=== PATIENT | female | born 1980 | race African-American/Black ===

== ENCOUNTER 2020-05-08 12:07 | Inpatient (IN) | payer OTHER ==
[2020-05-08 16:01] VITALS: BMI 24.9
[2020-05-08] MEDS ORDERED: ACETAMINOPHEN 325 MG TABLET (FP) PO PRN ×2 (16:48)
[2020-05-08] MEDS ORDERED: MAGNESIUM CITRATE 300 ML BOTTLE PO PRN (16:48)
[2020-05-08] MEDS ORDERED: MENTHOL/PHENOL 1 EACH UD MM PRN (16:48)
[2020-05-08] MEDS ORDERED: NICOTINE POLACRILEX 2 MG GUM BUC PRN (16:48)
[2020-05-08] MEDS ORDERED: MAG HYDROX/AL HYDROX/SIMETH 30 ML UNIT-DOSE CUP PO PRN (16:48)
[2020-05-08] MEDS ORDERED: BISMUTH SUBSALICYLATE 524 MG/30 ML UD PO PRN (16:48)
[2020-05-08] MEDS ORDERED: IBUPROFEN 400 MG TABLET (FP) PO PRN (16:48)
[2020-05-08] MEDS ORDERED: cloNIDine HCL 0.1 MG TABLET PO PRN (16:48)
[2020-05-08] MEDS ORDERED: MAGNESIUM HYDROX 2400MG/30ML ORAL SUSPENSION 30 ML CUP PO PRN (16:48)
[2020-05-08] MEDS ORDERED: METHOCARBAMOL 500 MG TABLET PO PRN (16:48)
[2020-05-08] MEDS ORDERED: ONDANSETRON *ODT* 4 MG TABLET SL PRN (16:48)
[2020-05-08] MEDS: hydrOXYzine PAMOATE 25 MG CAPSULE (FP) PO SCH ×2 (18:51→22:31)
[2020-05-08] MEDS ORDERED: METHADONE HCL 10 MG TABLET (FOR DETOX USE ONLY) PO ONE (22:00)
[2020-05-08] MEDS: THIAMINE HCL 100 MG TABLET (FP) PO SCH (22:31)
[2020-05-08] MEDS: MELATONIN 5 MG TABLETS PO SCH (22:31)
[2020-05-09] MEDS: hydrOXYzine PAMOATE 25 MG CAPSULE (FP) PO SCH ×5 (05:52→22:32)
[2020-05-09] MEDS ORDERED: METHADONE HCL 10 MG TABLET (FOR DETOX USE ONLY) ONE (09:14)
[2020-05-09] MEDS ORDERED: METHADONE HCL 5 MG TABLET (FOR DETOX USE ONLY) ONE (09:14)
[2020-05-09] MEDS ORDERED: METHADONE (DETOX) 20 MG, METHADONE (DETOX) 5 MG PO ONE (10:00)
[2020-05-09] MEDS: PRENATAL VITAMINS W/ FOLIC ACID TABLET (FP) PO SCH (10:02)
[2020-05-09] MEDS ORDERED: COLLOIDAL OATMEAL 1 BAR EACH TP PRN (10:42)
[2020-05-09 10:56] LABS: HEMATOCRIT 35.6 % (32.4-45.2); HEMOGLOBIN 11.7 GM/dL (10.7-15.3); MCHC 32.8 g/dl (32.0-36.0); MEAN CELL VOLUME 94.5 fl (80-96); MEAN PLT VOLUME 7.9 fl (7.5-11.1); PLATELET COUNT 238 K/MM3 (134-434); RBC 3.77 M/mm3 (3.60-5.2); RDW 13.1 % (11.6-15.6); WHITE BLOOD COUNT 3.9 K/mm3 (4.0-10.0)
[2020-05-09 11:06] LABS: POTASSIUM 3.9 mmol/L (3.5-5.1)
[2020-05-09] MEDS: VITAMINS A AND D TOPICAL OINTMENT 60 GM TUBE TP SCH ×3 (11:07→22:33)
[2020-05-09 11:30] LABS: CALCIUM 8.5 mg/dL (8.5-10.1)
[2020-05-09 11:31] LABS: BLOOD UREA NITROGEN 19.3 mg/dL (7-18)
[2020-05-09 11:34] LABS: CREATININE 0.8 mg/dL (0.55-1.3)
[2020-05-09 11:35] LABS: TOT PROT 5.9 g/dl (6.4-8.2)
[2020-05-09 11:36] LABS: BILIRUBIN,TOTAL 1.6 mg/dL (0.2-1)
[2020-05-09 11:54] LABS: HIV INTERPRETATION NEGATIVE (NEGATIVE)
[2020-05-09] MEDS: NICOTINE 21 MG/24 HOURS TOPICAL PATCH TD SCH (14:40)
[2020-05-09 15:37] LABS: URINE APPEARANCE Error; URINE BILIRUBIN NEGATIVE (NEGATIVE); URINE COLOR YELLOW; URINE GLUCOSE (UA) NEGATIVE (NEGATIVE); URINE KETONE NEGATIVE (NEGATIVE); URINE LEUK ESTERASE NEGATIVE (NEGATIVE); URINE NITRITE NEGATIVE (NEGATIVE); URINE PROTEIN NEGATIVE (NEGATIVE); URINE UROBILINOGEN 0.2 mg/dL (0.2-1.0)
[2020-05-09 15:46] LABS: EPI CELLS 26 /uL (0-25.1); HYALINE CASTS 0 /uL (0-3.1); URINE BACTERIA 198 /uL (0-1359); URINE RBC 3 /uL (0-23.9); URINE WBC 16 /uL (0-25.8)
[2020-05-09] MEDS: MELATONIN 5 MG TABLETS PO SCH (22:32)
[2020-05-09] MEDS: THIAMINE HCL 100 MG TABLET (FP) PO SCH (22:33)
[2020-05-10] MEDS: VITAMINS A AND D TOPICAL OINTMENT 60 GM TUBE TP SCH ×4 (05:49→23:37)
[2020-05-10] MEDS: hydrOXYzine PAMOATE 25 MG CAPSULE (FP) PO SCH ×2 (05:51→10:36)
[2020-05-10] MEDS ORDERED: METHADONE HCL 10 MG TABLET (FOR DETOX USE ONLY) PO ONE (10:00)
[2020-05-10] MEDS: PRENATAL VITAMINS W/ FOLIC ACID TABLET (FP) PO SCH (10:19)
[2020-05-10] MEDS: NICOTINE 21 MG/24 HOURS TOPICAL PATCH TD SCH (10:21)
[2020-05-10] MEDS: hydrOXYzine PAMOATE 50 MG CAPSULE (FP) PO SCH ×4 (10:42→22:19)
[2020-05-10] MEDS: metroNIDAZOLE 250 MG TABLET PO SCH ×2 (14:59→22:19)
[2020-05-10] MEDS: MELATONIN 5 MG TABLETS PO SCH (22:20)
[2020-05-10] MEDS: CLOTRIMAZOLE 1% VAGINAL CREAM WITH APPLICATOR 45 GM TUBE VG SCH (22:20)
[2020-05-10] MEDS: THIAMINE HCL 100 MG TABLET (FP) PO SCH (22:20)
[2020-05-11] MEDS: VITAMINS A AND D TOPICAL OINTMENT 60 GM TUBE TP SCH ×4 (07:34→22:09)
[2020-05-11] MEDS: hydrOXYzine PAMOATE 50 MG CAPSULE (FP) PO SCH ×5 (07:35→22:07)
[2020-05-11] MEDS ORDERED: METHADONE HCL 10 MG TABLET (FOR DETOX USE ONLY) ONE (08:54)
[2020-05-11] MEDS ORDERED: METHADONE HCL 5 MG TABLET (FOR DETOX USE ONLY) ONE (08:55)
[2020-05-11] MEDS ORDERED: MASKS NR ONE (09:21)
[2020-05-11] MEDS: PRENATAL VITAMINS W/ FOLIC ACID TABLET (FP) PO SCH (09:40)
[2020-05-11] MEDS: metroNIDAZOLE 250 MG TABLET PO SCH ×2 (09:41→22:08)
[2020-05-11] MEDS: NICOTINE 21 MG/24 HOURS TOPICAL PATCH TD SCH (09:41)
[2020-05-11] MEDS ORDERED: METHADONE (DETOX) 10 MG, METHADONE (DETOX) 5 MG PO ONE (10:00)
[2020-05-11] MEDS: MELATONIN 5 MG TABLETS PO SCH (22:08)
[2020-05-11] MEDS: THIAMINE HCL 100 MG TABLET (FP) PO SCH (22:08)
[2020-05-11] MEDS: CLOTRIMAZOLE 1% VAGINAL CREAM WITH APPLICATOR 45 GM TUBE VG SCH (22:10)
[2020-05-12] MEDS: VITAMINS A AND D TOPICAL OINTMENT 60 GM TUBE TP SCH ×4 (06:58→22:53)
[2020-05-12] MEDS: hydrOXYzine PAMOATE 50 MG CAPSULE (FP) PO SCH ×5 (07:13→22:14)
[2020-05-12] MEDS: metroNIDAZOLE 250 MG TABLET PO SCH ×2 (09:46→22:15)
[2020-05-12] MEDS: NICOTINE 21 MG/24 HOURS TOPICAL PATCH TD SCH (09:46)
[2020-05-12] MEDS: PRENATAL VITAMINS W/ FOLIC ACID TABLET (FP) PO SCH (09:46)
[2020-05-12] MEDS ORDERED: METHADONE HCL 10 MG TABLET (FOR DETOX USE ONLY) PO ONE (10:00)
[2020-05-12 10:21] LABS: HEMATOCRIT 35.8 % (32.4-45.2); HEMOGLOBIN 11.8 GM/dL (10.7-15.3); MCH 31.2 pg (25.7-33.7); MCHC 32.9 g/dl (32.0-36.0); MEAN CELL VOLUME 94.7 fl (80-96); MEAN PLT VOLUME 8.1 fl (7.5-11.1); PLATELET COUNT 260 K/MM3 (134-434); POTASSIUM 4.2 mmol/L (3.5-5.1); RBC 3.78 M/mm3 (3.60-5.2); RDW 13.3 % (11.6-15.6); WHITE BLOOD COUNT 4.8 K/mm3 (4.0-10.0)
[2020-05-12 10:24] LABS: BLOOD UREA NITROGEN 18.1 mg/dL (7-18); CALCIUM 8.8 mg/dL (8.5-10.1)
[2020-05-12 10:26] LABS: CREATININE 0.7 mg/dL (0.55-1.3)
[2020-05-12 10:28] LABS: BILIRUBIN,TOTAL 0.6 mg/dL (0.2-1)
[2020-05-12] MEDS: MELATONIN 5 MG TABLETS PO SCH (22:14)
[2020-05-12] MEDS: CLOTRIMAZOLE 1% VAGINAL CREAM WITH APPLICATOR 45 GM TUBE VG SCH (22:14)
[2020-05-12] MEDS: THIAMINE HCL 100 MG TABLET (FP) PO SCH (22:14)
[2020-05-13] MEDS ORDERED: METHADONE HCL 5 MG TABLET (FOR DETOX USE ONLY) PO ONE (06:00)
[2020-05-13] MEDS: hydrOXYzine PAMOATE 50 MG CAPSULE (FP) PO SCH ×2 (06:04→08:59)
[2020-05-13] MEDS: VITAMINS A AND D TOPICAL OINTMENT 60 GM TUBE TP SCH (06:18)
[2020-05-13] MEDS: NICOTINE 21 MG/24 HOURS TOPICAL PATCH TD SCH (08:59)
[2020-05-13] MEDS: PRENATAL VITAMINS W/ FOLIC ACID TABLET (FP) PO SCH (08:59)
[2020-05-13 09:02] VITALS: BP 120/67; PULSE 77; TEMP 97.3
== END 2020-05-13 09:10 | disposition home or self-care (01) | DRG 773 ==
LOC: YASAS 12:07 → Y3N 17:57
PROVIDERS: ADMIT Allergy & Immunology; ATTEND Allergy & Immunology
PROC: HZ2ZZZZ Detoxification Services for Substance Abuse Treatment (ICD-10-PCS; principal; 2020-05-08)
DX: F11.23 Opioid dependence with withdrawal (principal); F10.230 Alcohol dependence with withdrawal, uncomplicated; F13.230 Sedative, hypnotic or anxiolytic dependence with withdrawal, uncomplicated; F14.20 Cocaine dependence, uncomplicated; F12.20 Cannabis dependence, uncomplicated; F16.10 Hallucinogen abuse, uncomplicated; F17.210 Nicotine dependence, cigarettes, uncomplicated; Z56.0 Unemployment, unspecified; Z59.0 Homelessness
CPT/HCPCS: 36415; 80053; 81003; 81025; 85027; 86780; 87086; 87389; C9803; U0003

== ENCOUNTER 2021-04-07 12:04 | Inpatient (IN) | payer OTHER ==
[2021-04-07 14:25] VITALS: BMI 21.2
[2021-04-07] MEDS ORDERED: LORazepam 1 MG TABLET PO PRN (14:54)
[2021-04-07] MEDS ORDERED: IBUPROFEN 400 MG TABLET (FP) PO PRN (14:54)
[2021-04-07] MEDS ORDERED: methaDONE HCL 10 MG TABLET (FOR DETOX USE ONLY) PO ONE (14:54)
[2021-04-07] MEDS ORDERED: MAGNESIUM CITRATE 300 ML BOTTLE PO PRN (14:54)
[2021-04-07] MEDS ORDERED: MAG HYDROX/AL HYDROX/SIMETH 30 ML UNIT-DOSE CUP PO PRN (14:54)
[2021-04-07] MEDS ORDERED: METHOCARBAMOL 500 MG TABLET PO PRN (14:54)
[2021-04-07] MEDS ORDERED: cloNIDine HCL 0.1 MG TABLET PO PRN (14:54)
[2021-04-07] MEDS ORDERED: MENTHOL/PHENOL 1 EACH UD MM PRN (14:54)
[2021-04-07] MEDS ORDERED: MAGNESIUM HYDROX 2400MG/30ML ORAL SUSPENSION 30 ML CUP PO PRN (14:54)
[2021-04-07] MEDS ORDERED: BISMUTH SUBSALICYLATE 524 MG/30 ML PO PRN (14:54)
[2021-04-07] MEDS ORDERED: ONDANSETRON *ODT* 4 MG TABLET SL PRN (14:54)
[2021-04-07] MEDS ORDERED: NICOTINE 10 MG CARTRIDGE (INHALER) IH PRN (14:54)
[2021-04-07] MEDS ORDERED: ACETAMINOPHEN 325 MG TABLET (FP) PO PRN ×2 (14:54)
[2021-04-07] MEDS ORDERED: LORazepam 2 MG TABLET PO ONE (14:54)
[2021-04-07] MEDS ORDERED: COLLOIDAL OATMEAL 1 BAR EACH TP PRN (14:56)
[2021-04-07] MEDS: THIAMINE HCL 100 MG TABLET (FP) PO SCH (23:55)
[2021-04-07] MEDS: MELATONIN 5 MG TABLETS PO SCH (23:55)
[2021-04-07] MEDS: LORazepam 2 MG TABLET PO SCH (23:56)
[2021-04-07] MEDS: PRENATAL VITAMINS W/ FOLIC ACID TABLET (FP) PO SCH (23:56)
[2021-04-07] MEDS: METHYL SALICYLATE/MENTHOL OINT 30 GM TUBE TP SCH (23:56)
[2021-04-07] MEDS: NICOTINE 21 MG/24 HOURS TOPICAL PATCH TD SCH (23:57)
[2021-04-08] MEDS: LORazepam 2 MG TABLET PO SCH ×5 (00:40→22:40)
[2021-04-08] MEDS ORDERED: methaDONE HCL 10 MG TABLET (FOR DETOX USE ONLY) ONE (09:15)
[2021-04-08] MEDS: METHYL SALICYLATE/MENTHOL OINT 30 GM TUBE TP SCH ×2 (11:03→22:40)
[2021-04-08] MEDS: PRENATAL VITAMINS W/ FOLIC ACID TABLET (FP) PO SCH (11:08)
[2021-04-08] MEDS: NICOTINE 21 MG/24 HOURS TOPICAL PATCH TD SCH (11:08)
[2021-04-08] MEDS: THIAMINE HCL 100 MG TABLET (FP) PO SCH (22:39)
[2021-04-08] MEDS: MELATONIN 5 MG TABLETS PO SCH (22:39)
[2021-04-09] MEDS: LORazepam 1 MG TABLET PO SCH ×4 (06:35→23:12)
[2021-04-09] MEDS ORDERED: methaDONE HCL 10 MG TABLET (FOR DETOX USE ONLY) PO ONE (10:00)
[2021-04-09] MEDS: PRENATAL VITAMINS W/ FOLIC ACID TABLET (FP) PO SCH (11:11)
[2021-04-09] MEDS: NICOTINE 21 MG/24 HOURS TOPICAL PATCH TD SCH (11:11)
[2021-04-09] MEDS: METHYL SALICYLATE/MENTHOL OINT 30 GM TUBE TP SCH ×2 (11:24→23:13)
[2021-04-09 12:14] LABS: HEMATOCRIT 38.2 % (32.4-45.2); HEMOGLOBIN 12.6 GM/dL (10.7-15.3); MCH 30.7 pg (25.7-33.7); MEAN CELL VOLUME 93.1 fl (80-96); PLATELET COUNT 275 10^3/uL (134-434); WHITE BLOOD COUNT 5.1 K/mm3 (4.0-10.0)
[2021-04-09 12:30] LABS: ALBUMIN 2.9 g/dl (3.4-5.0); BLOOD UREA NITROGEN 12.9 mg/dL (7-18); CALCIUM 8.7 mg/dL (8.5-10.1)
[2021-04-09 12:33] LABS: CREATININE 0.6 mg/dL (0.55-1.3)
[2021-04-09 12:35] LABS: BILIRUBIN,TOTAL 0.8 mg/dL (0.2-1); TOT PROT 6.6 g/dl (6.4-8.2)
[2021-04-09] MEDS ORDERED: IBUPROFEN 400 MG TABLET (FP) PO PRN (13:11)
[2021-04-09] MEDS ORDERED: IBUPROFEN 600 MG TABLET (FP) PO PRN (13:28)
[2021-04-09 18:20] LABS: HIV INTERPRETATION NEGATIVE (NEGATIVE)
[2021-04-09] MEDS: THIAMINE HCL 100 MG TABLET (FP) PO SCH (23:11)
[2021-04-09] MEDS: MELATONIN 5 MG TABLETS PO SCH (23:11)
[2021-04-10] MEDS ORDERED: LORazepam 0.5 MG TABLET PO PRN
[2021-04-10] MEDS: LORazepam 0.5 MG TABLET PO SCH ×2 (06:46→10:31)
[2021-04-10] MEDS ORDERED: methaDONE HCL 10 MG TABLET (FOR DETOX USE ONLY) ONE (08:56)
[2021-04-10] MEDS: NICOTINE 21 MG/24 HOURS TOPICAL PATCH TD SCH (10:31)
[2021-04-10] MEDS: PRENATAL VITAMINS W/ FOLIC ACID TABLET (FP) PO SCH (10:31)
[2021-04-10 12:42] VITALS: BP 129/85; PULSE 84; TEMP 97.5
[2021-04-10] MEDS: METHYL SALICYLATE/MENTHOL OINT 30 GM TUBE TP SCH (14:51)
[2021-04-10] MEDS ORDERED: VITAMINS A AND D TOPICAL OINTMENT 60 GM TUBE TP SCH (18:00)
[2021-04-11] MEDS ORDERED: LORazepam 0.5 MG TABLET PO ONE (05:00)
[2021-04-11] MEDS ORDERED: methaDONE HCL 10 MG TABLET (FOR DETOX USE ONLY) PO ONE (10:00)
== END 2021-04-10 15:19 | disposition left against medical advice (07) | DRG 770 ==
LOC: YASAS 12:04 → Y3N 15:39
PROVIDERS: ADMIT Allergy & Immunology; ATTEND Allergy & Immunology
PROC: HZ2ZZZZ Detoxification Services for Substance Abuse Treatment (ICD-10-PCS; principal; 2021-04-07)
DX: F11.23 Opioid dependence with withdrawal (principal); F10.230 Alcohol dependence with withdrawal, uncomplicated; F14.20 Cocaine dependence, uncomplicated; F16.10 Hallucinogen abuse, uncomplicated; F12.20 Cannabis dependence, uncomplicated; F13.10 Sedative, hypnotic or anxiolytic abuse, uncomplicated; F17.210 Nicotine dependence, cigarettes, uncomplicated; F19.24 Other psychoactive substance dependence with psychoactive substance-induced mood disorder; F39 Unspecified mood [affective] disorder; R94.5 Abnormal results of liver function studies; R22.42 Localized swelling, mass and lump, left lower limb; S99.912A Unspecified injury of left ankle, initial encounter; X58.XXXA Exposure to other specified factors, initial encounter; R63.4 Abnormal weight loss; Z68.21 Body mass index [BMI] 21.0-21.9, adult; Z59.00 Homelessness unspecified
CPT/HCPCS: 36415; 73610-TC-LT-FY; 73630-TC-LT; 80053; 81025; 85027; 86780; 86803; 87389; 87522; C9803; J0735; U0003; U0005

== ENCOUNTER 2022-08-31 10:41 | Inpatient (IN) | payer OTHER ==
[2022-08-31 11:18] VITALS: BMI 22.5
[2022-08-31] MEDS ORDERED: NALOXONE HCL (KLOXXADO) 8 MG SPRAY NS PRN (13:14)
[2022-08-31] MEDS ORDERED: BISMUTH SUBSALICYLATE 524 MG/30 ML PO PRN (13:14)
[2022-08-31] MEDS ORDERED: LOPERAMIDE HCL 2 MG CAPSULE PO PRN (13:14)
[2022-08-31] MEDS ORDERED: IBUPROFEN 400 MG TABLET (FP) PO PRN (13:14)
[2022-08-31] MEDS ORDERED: COLLOIDAL OATMEAL 1 BAR EACH TP PRN (13:14)
[2022-08-31] MEDS ORDERED: POLYETHYLENE GLYCOL (HEALTHYLAX) 3350 17 GM PACKET PO PRN (13:14)
[2022-08-31] MEDS ORDERED: DICYCLOMINE HCL 10 MG CAPSULE PO PRN (13:14)
[2022-08-31] MEDS ORDERED: NICOTINE 10 MG CARTRIDGE (INHALER) IH PRN (13:14)
[2022-08-31] MEDS ORDERED: MAG HYDROX/AL HYDROX/SIMETH 30 ML UNIT-DOSE CUP PO PRN (13:14)
[2022-08-31] MEDS ORDERED: BENZONATATE 200 MG CAPSULE PO PRN (13:14)
[2022-08-31] MEDS ORDERED: BENZOCAINE/MENTHOL (CHLORASEPTIC ) LOZENGE MM PRN (13:14)
[2022-08-31] MEDS ORDERED: ONDANSETRON *ODT* 4 MG TABLET SL PRN (13:14)
[2022-08-31] MEDS ORDERED: guaiFENesin 600 MG TABLET.ER (FP) PO PRN (13:14)
[2022-08-31] MEDS ORDERED: NALOXONE HCL 0.4 MG/ML VIAL IM PRN (13:14)
[2022-08-31] MEDS ORDERED: cloNIDine HCL 0.1 MG TABLET PO PRN (13:14)
[2022-08-31] MEDS ORDERED: MAGNESIUM HYDROX 2400MG/30ML ORAL SUSPENSION 30 ML CUP PO PRN (13:14)
[2022-08-31] MEDS ORDERED: VITAMINS A AND D TOPICAL OINTMENT 60 GM TUBE TP PRN (13:17)
[2022-08-31] MEDS ORDERED: methaDONE HCL 10 MG TABLET (FOR DETOX USE ONLY) ONE (14:59)
[2022-08-31] MEDS ORDERED: NICOTINE 21 MG/24 HOURS TOPICAL PATCH ONE (14:59)
[2022-08-31] MEDS ORDERED: methaDONE HCL 10 MG TABLET (FOR DETOX USE ONLY) PO ONE (15:00)
[2022-08-31] MEDS: NICOTINE 21 MG/24 HOURS TOPICAL PATCH TD SCH (15:09)
[2022-08-31] MEDS: THIAMINE HCL 100 MG TABLET (FP) PO SCH (22:37)
[2022-08-31] MEDS: MELATONIN 5 MG TABLETS PO SCH (22:37)
[2022-09-01] MEDS: PRENATAL VITAMINS W/ FOLIC ACID TABLET (FP) PO SCH (10:27)
[2022-09-01] MEDS: METHOCARBAMOL 500 MG TABLET PO PRN (10:27)
[2022-09-01] MEDS: NICOTINE 21 MG/24 HOURS TOPICAL PATCH TD SCH (10:28)
[2022-09-01 12:16] LABS: HEMATOCRIT 37.3 % (32.4-45.2); HEMOGLOBIN 12.4 GM/dL (10.7-15.3); MCH 29.3 pg (25.7-33.7); MCHC 33.2 g/dl (32.0-36.0); MEAN CELL VOLUME 88.3 fl (80-96); MEAN PLT VOLUME 7.5 fl (7.5-11.1); PLATELET COUNT 297 10^3/uL (134-434); RBC 4.23 M/mm3 (3.60-5.2); RDW 14.5 % (11.6-15.6); WHITE BLOOD COUNT 5.4 K/mm3 (4.0-10.0)
[2022-09-01 12:27] LABS: CALCIUM 8.5 mg/dL (8.5-10.1)
[2022-09-01 12:28] LABS: ALBUMIN 2.6 g/dl (3.4-5.0); BLOOD UREA NITROGEN 15.9 mg/dL (7-18)
[2022-09-01 12:31] LABS: CREATININE 0.5 mg/dL (0.55-1.3)
[2022-09-01 12:33] LABS: BILIRUBIN,TOTAL 0.3 mg/dL (0.2-1); TOT PROT 5.8 g/dl (6.4-8.2)
[2022-09-01] MEDS: MELATONIN 5 MG TABLETS PO SCH (22:27)
[2022-09-01] MEDS: THIAMINE HCL 100 MG TABLET (FP) PO SCH (22:27)
[2022-09-02] MEDS ORDERED: methaDONE HCL 10 MG TABLET (FOR DETOX USE ONLY) PO ONE (10:00)
[2022-09-02] MEDS: NICOTINE 21 MG/24 HOURS TOPICAL PATCH TD SCH (10:43)
[2022-09-02] MEDS: PRENATAL VITAMINS W/ FOLIC ACID TABLET (FP) PO SCH (10:43)
[2022-09-02 13:45] LABS: EPI CELLS >36 /uL (0-25.1); HYALINE CASTS 3 /uL (0-3.1); PH,URINE 8.5 (5.0-8.0); URINE APPEARANCE CLEAR; URINE BACTERIA 287 /uL (0-1359); URINE BILIRUBIN NEGATIVE (NEGATIVE); URINE COLOR YELLOW; URINE GLUCOSE (UA) NEGATIVE (NEGATIVE); URINE KETONE NEGATIVE (NEGATIVE); URINE LEUK ESTERASE 1+ (NEGATIVE); URINE NITRITE NEGATIVE (NEGATIVE); URINE PROTEIN NEGATIVE (NEGATIVE); URINE RBC 6 /uL (0-23.9); URINE UROBILINOGEN 0.2 mg/dL (0.2-1.0); URINE WBC 92 /uL (0-25.8)
[2022-09-02] MEDS: THIAMINE HCL 100 MG TABLET (FP) PO SCH (22:49)
[2022-09-02] MEDS: MELATONIN 5 MG TABLETS PO SCH (22:49)
[2022-09-03 09:41] VITALS: RESP 18
[2022-09-03] MEDS: NICOTINE 21 MG/24 HOURS TOPICAL PATCH TD SCH (10:11)
[2022-09-03] MEDS: METHOCARBAMOL 500 MG TABLET PO PRN (10:11)
[2022-09-03] MEDS: PRENATAL VITAMINS W/ FOLIC ACID TABLET (FP) PO SCH (10:12)
[2022-09-03 13:10] VITALS: BP 123/78; PULSE 99; TEMP 98.1
[2022-09-04] MEDS ORDERED: methaDONE HCL 10 MG TABLET (FOR DETOX USE ONLY) PO ONE (10:00)
== END 2022-09-03 14:08 | disposition left against medical advice (07) | DRG 770 ==
LOC: YASAS 10:41 → Y6N 16:59
PROVIDERS: ADMIT Allergy & Immunology; ATTEND Surgery
PROC: HZ2ZZZZ Detoxification Services for Substance Abuse Treatment (ICD-10-PCS; principal; 2022-08-31)
DX: F11.23 Opioid dependence with withdrawal (principal); F14.20 Cocaine dependence, uncomplicated; F15.20 Other stimulant dependence, uncomplicated; F17.210 Nicotine dependence, cigarettes, uncomplicated; F31.9 Bipolar disorder, unspecified; F41.9 Anxiety disorder, unspecified; Z86.19 Personal history of other infectious and parasitic diseases
CPT/HCPCS: 36415; 80053; 81003; 85027; 86780; 87811; C9803-CS; U0003; U0005